=== PATIENT | female | born 1945 | race Caucasian/White ===

== ENCOUNTER 2019-12-07 21:00 | Emergency (ER) | payer BC, MEDICARE ==
[2019-12-07] MEDS ORDERED: Oseltamivir 75 MG Cap ONE ×2 (21:30→22:10)
--- NOTE | 2019-12-07 23:05 | ER ---
REASON FOR EMERGENCY ROOM VISIT: Cough. HISTORY: This 74-year-old woman was brought in by her with a 1-day history of a non- productive cough and possibly low-grade fever along with some myalgias and weakness. She states that last evening her noticed that she had a nonproductive cough that seemed to persist throughout the night and it increased today. She has felt weak and thought she has had some chills and diffuse myalgias. She had a mild sore throat yesterday, which has resolved today. She has not had any GI symptoms. She denies any actual shortness of breath, but feels profound weakness and a loss of appetite. Similarly, she denies any headache. She did receive an influenza vaccine last fall. PAST MEDICAL HISTORY: 1. Type 2 diabetes. 2. Hypertension. MEDICATIONS: Reviewed. See EMR. ALLERGIES: NONE TO MEDICATIONS. REVIEW OF SYSTEMS: Pertinent positives and negatives as listed in the HPI. PHYSICAL EXAMINATION: GENERAL: Reveals an elderly woman who is in no acute distress. VITAL SIGNS: She is afebrile. Heart rate is 102, blood pressure 189/66, respiratory rate 20, O2 sats 97% on room air. HEENT: She has no scleral icterus or conjunctivitis. TMs are normal. Oropharynx is normal with no exudates or erythema. NECK: Supple with no adenopathy. CHEST: Clear to auscultation with no wheezes, rhonchi, or rales. CARDIAC: Regular rate without murmur. ABDOMEN: Soft and nontender. LABORATORY DATA: A nasal swab was obtained for influenza A and B, and she indeed was positive for influenza B. Her chest x-ray was obtained, which did not show any distinct infiltrates. She does have a somewhat prominent interstitial pattern that seems to be diffuse. I am not certain that this represents any diffuse pneumonitis. IMPRESSION: Influenza B. PLAN: Tamiflu 75 mg p.o. b.i.d. p.o. q.12 hours x5 days. She was also instructed regarding the use of Tylenol and generous clear liquids. Should her symptoms worsen at all, she should return for a recheck. They understand this. They also understand that sometimes the influenza can have a period of improvement and almost recovery, followed by worsening of symptoms, and should that happen, she should be promptly seen. All questions were answered. They understand and agree with this plan. WADE/DENITA /[id number]
--- NOTE | 2019-12-08 07:44 | CR ---
Date of Service: 12/07/19 Clinical Data: Cough. AP AND LATERAL CHEST: No priors. Posterior aspect of the chest is obscured by metallic artifact on the lateral view. The heart size is normal. There is calcification of the aortic arch. The lungs are mildly hyperexpanded. There are scattered reticular opacities throughout both lungs. No areas of consolidation. No pneumothorax. No pleural effusions. No other significant findings. [id number] MTDD
== END 2019-12-07 22:20 | disposition home or self-care (01) ==
LOC: LB.ED 21:00
DX: J10.1 Influenza due to other identified influenza virus with other respiratory manifestations (principal); E11.9 Type 2 diabetes mellitus without complications; I10 Essential (primary) hypertension
CPT/HCPCS: 71046; 87804; 87804-59; 99283; 99285-25; A9270-GY

== ENCOUNTER 2020-06-06 08:17 | Observation (INO) | payer MEDICARE ==
[2020-06-06] MEDS: Sodium Chloride 0.9% 1,000 ML IV SCH ×2 (10:13→11:11)
--- NOTE | 2020-06-06 10:16 | EDM.PDOC ---
ED HPI GENERAL MEDICAL PROBLEM - General Chief Complaint: Gastrointestinal Problem Stated Complaint: weak, diarrhea Time Seen by Provider: 06/06/20 09:40 Source of Information: Reports: EMS History Limitations: Reports: No Limitations - History of Present Illness INITIAL COMMENTS - FREE TEXT/NARRATIVE: Pt states she has had diarrhea 5-6 x a day for past four days. No fever, no coughing, no chest pain, no dyspnea, no vomiting, no persistent abdominal pain, occasional cramping with BM. Pt states she has not had much in the way of food these past 4 days, has been eating crackers mostly. Pt just finished 10 day coarse of an antibiotic Cipro for Diverticulitis. Stopped the Cipro 5 days ago and diarrhea started the next day(Cipro side effects often associated with diarrhea). Of concern is that patient did test positive for COVID-19 4 days and her is in intensive care at another hospital due to COVID. Onset Date: 06/03/20 Onset Time: 07:00 Duration: Day(s):, Waxing/Waning Location: Reports: Abdomen Quality: Reports: Pressure Severity: Moderate Improves with: Reports: None Worsens with: Reports: Eating Associated Symptoms: Reports: Weakness Lower Posterior Back Pain Score (Numeric/FACES): 5 - Related Data Allergies Allergy/AdvReac Type Severity Reaction Status Date / Time No Known Allergies Allergy Verified 06/06/20 10:30 Home Meds: Home Meds Benazepril [Lotensin] 40 mg PO DAILY 06/06/20 [History] Insulin Detemir [Levemir] 40 unit SUBCUT BEDTIME 06/06/20 [History] Insulin Detemir [Levemir] 50 unit SUBCUT QAM 06/06/20 [History] Simvastatin 10 mg PO DAILY 06/06/20 [History] amLODIPine [Norvasc] 5 mg PO DAILY 06/06/20 [History] glyBURIDE/Metformin HCl [Glyburid-Metformin 1.25-250 mg] 2 each PO BID 06/06/20 [History] hydroCHLOROthiazide [Hydrochlorothiazide] 25 mg PO DAILY 06/06/20 [History] Past Medical History HEENT History: Reports: Hard of Hearing, Impaired Vision Cardiovascular History: Reports: Hypertension Endocrine/Metabolic History: Reports: Diabetes, Type II - Past Surgical History HEENT Surgical History: Reports: Cataract Surgery Social & Family History - Family History Family Medical History: Noncontributory - Caffeine Use Caffeine Use: Reports: Coffee ED ROS GENERAL - Review of Systems Review Of Systems: Comprehensive ROS is negative, except as noted in HPI. Constitutional: Reports: Weakness, Fatigue, Decreased Appetite. Denies: Fever, Chills HEENT: Reports: No Symptoms Respiratory: Reports: No Symptoms. Denies: Shortness of Breath, Wheezing, Pleuritic Chest Pain, Cough Cardiovascular: Reports: No Symptoms. Denies: Chest Pain, Dyspnea on Exertion, Edema, Lightheadedness GI/Abdominal: Reports: Anorexia, Diarrhea, Stool Incontinence. Denies: Bloody Stool, Mucous in Stool, Nausea, Vomiting : Reports: No Symptoms Musculoskeletal: Reports: No Symptoms Skin: Reports: No Symptoms Neurological: Reports: Weakness Psychiatric: Reports: No Symptoms ED EXAM, GENERAL - Physical Exam Exam: See Below Exam Limited By: No Limitations General Appearance: Alert, WD/WN, No Apparent Distress Ears: Normal External Exam Nose: Normal Inspection, Normal Mucosa Throat/Mouth: Normal Inspection, Normal Lips, Normal Teeth Head: Atraumatic, Normocephalic Neck: Normal Inspection, Supple, Non-Tender, Full Range of Motion Respiratory/Chest: No Respiratory Distress, Lungs Clear, Normal Breath Sounds, No Accessory Muscle Use, Chest Non-Tender Cardiovascular: Normal Peripheral Pulses, Regular Rate, Rhythm, No Edema GI/Abdominal: Soft, Non-Tender, No Organomegaly, No Distention, No Abnormal Bruit, No Mass. No: Distended, Guarding, Rigid, Rebound, Tender, Abnormal Bowel Sounds Extremities: Normal Inspection Neurological: Alert, Oriented, CN II-XII Intact, Normal Cognition Psychiatric: Normal Affect Course - Vital Signs Last Recorded V/S: Last Vital Signs Temp 97.5 F 06/07/20 12:00 Pulse 68 06/07/20 12:00 Resp 16 06/07/20 12:00 BP 160/60 H 06/07/20 12:00 Pulse Ox 95 06/07/20 12:00 - Orders/Labs/Meds Orders: Medication Orders Acetaminophen (Tylenol) 650 mg PO Q4H PRN PRN Reason: Fever Last Admin: 06/07/20 07:51 Dose: 650 mg Documented by: Admin: 06/06/20 20:57 Dose: 650 mg Documented by: JUAN RAMON Amlodipine Besylate (Norvasc) 10 mg PO DAILY [facility] Last Admin: 06/07/20 07:51 Dose: Not Given Documented by: REGAN Benazepril HCl (Lotensin) 40 mg PO DAILY [facility] Last Admin: 06/07/20 07:45 Dose: Not Given Documented by: REGAN Hydrochlorothiazide (Hydrochlorothiazide) 25 mg PO DAILY [facility] Last Admin: 06/07/20 07:44 Dose: 25 mg Documented by: REGAN Insulin Detemir (Levemir) 40 unit SUBCUT BEDTIME [facility] Last Admin: 06/06/20 21:22 Dose: 40 units Documented by: JUAN RAMON Cosigned by: LEATHA Insulin Detemir (Levemir) 50 unit SUBCUT QAM [facility] Last Admin: 06/07/20 08:15 Dose: 50 units Documented by: REGAN Torresigned by: JUAN Glyburide/Metformin (5mg/500mg Tablets) 2 each PO BID [facility] Last Admin: 06/07/20 08:16 Dose: 2 each Documented by: Admin: 06/06/20 19:35 Dose: 2 each Documented by: JUAN RAMON Sodium Chloride (Saline Flush) 10 ml FLUSH BID [facility] Last Admin: 06/07/20 11:00 Dose: 10 ml Documented by: REGAN Labs: Laboratory Tests 06/06/20 06/06/20 06/06/20 Range/Units 10:30 10:38 11:39 WBC 4.4 (4.0-11.0) K/uL RBC 3.95 (3.80-5.80) M/uL Hgb 11.8 (11.5-16.5) g/dL Hct 33.6 L (37.0-47.0) % MCV 85 (76-96) fL MCH 29.9 (27.0-32.0) pg MCHC 35.1 H (31.0-35.0) g/dL RDW 13.2 (11.0-16.0) % Plt Count 343 (150-500) K/uL MPV 8.5 (6.0-10.0) fL Neut % (Auto) 49.8 (45.0-70.0) % Lymph % (Auto) 36.7 (20.0-40.0) % [place] % (Auto) 11.9 H (3.0-10.0) % Eos % (Auto) 1.1 (1.0-5.0) % Baso % (Auto) 0.5 (0.0-0.5) % Neut # (Auto) 2.17 (2.00-7.50) K/uL Lymph # (Auto) 1.60 (1.50-4.00) K/uL [place] # (Auto) 0.52 (0.20-0.80) K/uL Eos # (Auto) 0.05 (0.04-0.40) K/uL Baso # (Auto) 0.02 (0.02-0.10) K/uL Sodium 124 L (136-145) mmol/L Potassium 4.7 (3.5-5.1) mmol/L Chloride 92 L (98-107) mmol/L Carbon Dioxide 22.3 (21.0-32.0) mmol/L Anion Gap 14.4 (5.0-15.0) mmol/L BUN 23 (8-26) mg/dL Creatinine 1.13 H (0.55-1.02) mg/dL Est Cr Clr Drug Dosing 38.71 mL/min Estimated GFR (MDRD) 47 L (>60) MLS/MIN BUN/Creatinine Ratio 20.4 (6-25) Glucose 174 H (74-100) mg/dL Calcium 8.2 L (8.5-10.1) mg/dL Total Bilirubin 0.3 (0.0-1.0) mg/dL AST 18 (15-37) U/L ALT 23 (12-78) U/L Alkaline Phosphatase 66 (46-116) U/L Total Protein 7.1 (6.4-8.2) g/dL Albumin 3.4 (3.4-5.0) g/dL Globulin 3.7 (2.2-4.2) g/dL Albumin/Globulin Ratio 0.9 (0.8-2.0) Amylase 47 (25-115) U/L Lipase 130 (73-393) U/L Urine Color Yellow Urine Appearance Clear (CLEAR) Urine pH 5.5 (5.0-8.0) Ur Specific [place] 1.015 (1.003-1.030) Urine Protein Negative (NEGATIVE) mg/dL Urine Glucose (UA) Negative (NEGATIVE) mg/dL Urine Ketones Negative (NEGATIVE) mg/dL Urine Occult Blood Negative (NEGATIVE) Urine Nitrite Negative (NEGATIVE) Urine Bilirubin Negative (NEGATIVE) Urine Urobilinogen 0.2 (0.2-1.0) E.U./dL Ur Leukocyte Esterase Negative (NEGATIVE) Urine RBC Not Reportable Urine WBC Not Reportable Ur Epithelial Cells Rare /HPF Urine Bacteria Rare /HPF Meds: Medications Generic Name Dose Route Start Last Admin Trade Name Montrell PRN Reason Stop Dose Admin Acetaminophen 650 mg 06/06/20 19:18 06/07/20 07:51 Tylenol PO 650 mg Q4H PRN Administration Fever Amlodipine Besylate 10 mg 06/07/20 08:00 06/07/20 07:51 Norvasc PO Not Given DAILY [facility] Benazepril HCl 40 mg 06/07/20 08:00 06/07/20 07:45 Lotensin PO Not Given DAILY [facility] Hydrochlorothiazide 25 mg 06/07/20 08:00 06/07/20 07:44 Hydrochlorothiazide PO 25 mg DAILY [facility] Administration Insulin Detemir 40 unit 06/06/20 21:00 06/06/20 21:22 Levemir SUBCUT 40 units BEDTIME [facility] Administration Insulin Detemir 50 unit 06/07/20 08:00 06/07/20 08:15 Levemir SUBCUT 50 units QAM [facility] Administration Glyburide/Metformin 2 each 06/06/20 20:00 06/07/20 08:16 5mg/500mg Tablets PO 2 each BID [facility] Administration Sodium Chloride 10 ml 06/07/20 08:00 06/07/20 11:00 Saline Flush FLUSH 10 ml BID [facility] Administration Discontinued Medications Generic Name Dose Route Start Last Admin Trade Name Montrell PRN Reason Stop Dose Admin Sodium Chloride 1,000 mls @ 125 mls/hr 06/06/20 10:30 06/06/20 11:11 Normal Saline IV 125 mls/hr ASDIRECTED [facility] Administration Insulin Detemir 35 unit 06/06/20 20:00 Levemir SUBCUT BEDTIME [facility] Loperamide HCl 4 mg 06/06/20 10:38 06/06/20 10:51 Imodium PO 06/06/20 10:39 4 mg ONETIME ONE Administration Sodium Chloride 10 ml 06/06/20 10:21 06/06/20 19:20 Saline Flush FLUSH 10 ml ASDIRECTED PRN Administration Keep Vein Open - Re-Assessments/Exams Free Text/Narrative Re-Assessment/Exam: 06/06/20 14:20 Pt has had no further episodes of diarrhea. Remains afebrile, but still feels weak and unsteady. She is only able to stand while being assisted. Free Text/Narrative Re-Assessment/Exam: 06/06/20 16:22 Afebrile. No further episodes of diarrhea. Feels too weak to go home where there is no one to assist her. 06/07/20 08:46 Pt still feels weak. Yesterdays labs c/w dehydration. Spoke with infectious disease doctor (Dr Byrne), [place] who advised even though she is hyponatremic and hypovolemic because of being COVID + did not recommend any further IVF after her initial bolus. Will repeat labs this AM and ordered a CXR due to faint crackle lower lung kauffman. Free Text/Narrative Re-Assessment/Exam: 06/06/20 17:[address] a Dr Byrne (hospitalist) at [facility] in [place], [place]. He agreed with current treatment plan and that she can be kept and monitored here at [facility]. He did advise that since she is asymptomatic for COVID symptoms that even though she is dehydrated that the continuous need for IVF is not recommended and her current IV infusion was stopped. Departure - Departure Time of Disposition: 15:00 Disposition: DC/Tfer to Acute Hospital 02 Condition: Fair Clinical Impression: COVID-19 - Discharge Information *PRESCRIPTION DRUG MONITORING PROGRAM REVIEWED*: Not Applicable *COPY OF PRESCRIPTION DRUG MONITORING REPORT IN PATIENT MARKIE: Not Applicable
[2020-06-06] MEDS ORDERED: Sodium Chloride 0.9% 10 ML Syringe FLUSH PRN (10:21)
[2020-06-06] MEDS ORDERED: Loperamide 2 MG Cap PO ONE (10:38)
[2020-06-06] MEDS: METFORMIN PO SCH (19:35)
[2020-06-06] MEDS: GLYBURIDE PO SCH (19:35)
[2020-06-06] MEDS ORDERED: Non-Formulary Medication 1 Each PO SCH (20:00)
[2020-06-06] MEDS ORDERED: Insulin Detemir 100 Units/ML 3 ML Pen SUBCUT SCH ×2 (20:00→21:00)
[2020-06-06] MEDS: Acetaminophen 325 MG Tab PO PRN (20:57)
[2020-06-07] MEDS: Acetaminophen 325 MG Tab PO PRN (07:51)
[2020-06-07] MEDS ORDERED: Hydrochlorothiazide 25 MG Tab PO SCH (08:00)
[2020-06-07] MEDS ORDERED: Benazepril 40 MG Tab PO SCH (08:00)
[2020-06-07] MEDS ORDERED: Insulin Detemir 100 Units/ML 3 ML Pen SUBCUT SCH (08:00)
[2020-06-07] MEDS ORDERED: amLODIPine 10 MG Tab PO SCH (08:00)
[2020-06-07] MEDS ORDERED: Sodium Chloride 0.9% 10 ML Syringe FLUSH SCH (08:00)
[2020-06-07] MEDS: GLYBURIDE PO SCH (08:16)
[2020-06-07] MEDS: METFORMIN PO SCH (08:16)
--- NOTE | 2020-06-10 06:51 | CR ---
Date of Service: 06/07/20 Clinical Data: weakness, COVID AP CHEST: Comparison is made to a prior exam dated 12/07/19. The heart size is normal. There is calcification of the aortic arch. The lungs are clear. No pneumothorax. No pleural effusions. No evidence of acute intrathoracic disease. [id number] [facility]
--- NOTE | 2020-06-28 15:14 | PCM.PN ---
- General Info Date of Service: 06/07/20 Admission Dx/Problem (Free Text): Dehydration + COVID19 Functional Status: Reports: Pain Controlled - Review of Systems General: Reports: No Symptoms HEENT: Reports: No Symptoms Pulmonary: Reports: No Symptoms Cardiovascular: Reports: No Symptoms Gastrointestinal: Reports: Diarrhea. Denies: Abdominal Pain Genitourinary: Reports: No Symptoms Musculoskeletal: Reports: No Symptoms Skin: Reports: No Symptoms Neurological: Reports: No Symptoms Psychiatric: Reports: No Symptoms - Patient Data Vitals - Most Recent: Last Vital Signs Temp 98.2 F 06/07/20 15:00 Pulse 72 06/07/20 15:00 Resp 18 06/07/20 15:00 BP 160/50 H 06/07/20 15:00 Pulse Ox 96 06/07/20 15:00 Weight - Most Recent: 200 lb Med Orders - Current: Current Medications Discontinued Medications Acetaminophen (Tylenol) 650 mg PO Q4H PRN PRN Reason: Fever Last Admin: 06/07/20 07:51 Dose: 650 mg Documented by: Amlodipine Besylate (Norvasc) 10 mg PO DAILY [facility] Last Admin: 06/07/20 07:51 Dose: Not Given Documented by: Benazepril HCl (Lotensin) 40 mg PO DAILY [facility] Last Admin: 06/07/20 07:45 Dose: Not Given Documented by: Hydrochlorothiazide (Hydrochlorothiazide) 25 mg PO DAILY [facility] Last Admin: 06/07/20 07:44 Dose: 25 mg Documented by: Sodium Chloride (Normal Saline) 1,000 mls @ 125 mls/hr IV ASDIRECTED [facility] Last Admin: 06/06/20 11:11 Dose: 125 mls/hr Documented by: Insulin Detemir (Levemir) 35 unit SUBCUT BEDTIME [facility] Insulin Detemir (Levemir) 40 unit SUBCUT BEDTIME [facility] Last Admin: 06/06/20 21:22 Dose: 40 units Documented by: Insulin Detemir (Levemir) 50 unit SUBCUT QAM [facility] Last Admin: 06/07/20 08:15 Dose: 50 units Documented by: Loperamide HCl (Imodium) 4 mg PO ONETIME ONE Stop: 06/06/20 10:39 Last Admin: 06/06/20 10:51 Dose: 4 mg Documented by: Glyburide/Metformin (5mg/500mg Tablets) 2 each PO BID [facility] Last Admin: 06/07/20 08:16 Dose: 2 each Documented by: Sodium Chloride (Saline Flush) 10 ml FLUSH ASDIRECTED PRN PRN Reason: Keep Vein Open Last Admin: 06/06/20 19:20 Dose: 10 ml Documented by: Sodium Chloride (Saline Flush) 10 ml FLUSH BID [facility] Last Admin: 06/07/20 11:00 Dose: 10 ml Documented by: - Exam General: Alert, Oriented, Cooperative, No Acute Distress HEENT: Pupils Equal Neck: Supple Lungs: Clear to Auscultation, Normal Respiratory Effort Cardiovascular: Regular Rate, Regular Rhythm GI/Abdominal Exam: Normal Bowel Sounds, Soft, Non-Tender Back Exam: Normal Inspection Extremities: Normal Inspection, Normal Range of Motion Skin: Warm Neurological: No New Focal Deficit Sepsis Event Note - Evaluation Sepsis Screening Result: No Definite Risk - Problem List Review Problem List Initiated/Reviewed/Updated: Yes - Plan Plan:: Pt was transferred to [place], [place]
== END 2020-06-07 15:02 ==
LOC: LB.ED 08:17 → LB.MS 11:49
PROVIDERS: ADMIT Physician Assistant Surgical; ATTEND Physician Assistant Surgical
DX: E86.0 Dehydration (principal); U07.1 COVID-19; I10 Essential (primary) hypertension; R19.7 Diarrhea, unspecified; E11.9 Type 2 diabetes mellitus without complications; E87.1 Hypo-osmolality and hyponatremia; E86.1 Hypovolemia; Z79.4 Long term (current) use of insulin; Z79.899 Other long term (current) drug therapy
CPT/HCPCS: 12002; 12004; 36415; 71045; 80048; 80053; 81001; 82150; 83690; 85025; 96360; 96361; 99219; 99285; A0425; A0429; A9270; G0378; J1815; J7030